=== PATIENT | female | born 1990 | race Caucasian/White ===

== ENCOUNTER 2016-11-21 20:47 | Emergency (ER) | payer BC ==
--- NOTE | 2016-11-21 22:13 | ED ---
General Adult HPI - General Chief complaint: ENT Stated complaint: ent, HEADACHE Time Seen by Provider: 11/21/16 21:59 Source: patient, RN notes reviewed Mode of arrival: ambulatory Limitations: no limitations - History of Present Illness Initial comments: Patient 26-year-old female who presents emergency room today with chief complaint of cough congestion over the last 4 days. Does admit that it started with sore throat. States progressed to increased rhinorrhea and cough congestion at times having some sputum production. She denies any fever at home. Denies any bodyaches. Does admit that she is proximal was 6 months . Denies any vaginal bleeding discharge. Denies any abdominal pain. Denies any other complaints or symptoms. Patient denies any recent fever, chills , shortness of breath, chest pain, back pain, abdominal pain, nausea or vomiting , numbness or tingling, dysuria or hematuria, constipation or diarrhea, headaches or visual changes, or any other complaints. - Related Data Allergies Allergy/AdvReac Type Severity Reaction Status Date / Time No Known Allergies Allergy Verified 11/21/16 21:23 Review of Systems ROS Statement: Those systems with pertinent positive or pertinent negative responses have been documented in the HPI. ROS Other: All systems not noted in ROS Statement are negative. Past Medical History Past Medical History: No Reported History History of Any Multi-Drug Resistant Organisms: None Reported Past Surgical History: Appendectomy Past Psychological History: No Psychological Hx Reported Smoking Status: Never smoker Past Alcohol Use History: None Reported Past Drug Use History: None Reported General Exam - General Exam Comments Initial Comments: General: The patient is awake and alert, in no distress, and does not appear acutely ill. Eye: Pupils are equal, round and reactive to light, extra-ocular movements are intact. No nystagmus. There is normal conjunctiva bilaterally. No signs of icterus. Ears, nose, mouth and throat: There are moist mucous membranes and no oral lesions. TMs clear bilaterally. The midline. Mild redness to the posterior pharynx no sign of exudate. Neck: The neck is supple, there is no tenderness or JVD. Cardiovascular: There is a regular rate and rhythm. No murmur, rub or gallop is appreciated. Respiratory: Lungs are clear to auscultation, respirations are non-labored, breath sounds are equal. No wheezes, stridor, rales, or rhonchi. Musculoskeletal: Normal ROM, no tenderness. Strength 5/5. Sensation intact. Pulses equal bilaterally 2+. Neurological: A&O x 3. CN II-XII intact, There are no obvious motor or sensory deficits. Coordination appears grossly intact. Speech is normal. Skin: Skin is warm and dry and no rashes or lesions are noted. Psychiatric: Cooperative, appropriate mood & affect, normal judgment. Limitations: no limitations Course Vital Signs 11/21/16 21:23 Temperature 97.0 F L Pulse Rate 94 Respiratory 17 Rate Blood Pressure 139/60 O2 Sat by Pulse 98 Oximetry Medical Decision Making - Medical Decision Making Patient examined here in the emergency room shows no signs of distress. Her vitals are stable. No fever. Patient does have cough congestion for the past 4 days. Advised patient most likely a viral illness. At this time chest x-ray due to . Patient feels comfortable being discharged home advised to follow-up family doctor over the next 2 days. Advised to use [id number] Claritin for symptoms. Advised return if any symptoms increase or worsen or for any other concerns. Disposition Clinical Impression: Upper respiratory infection Disposition: HOME SELF-CARE Condition: Good Instructions: Upper Respiratory Infection (ED) Additional Instructions: Please use [id number] Claritin as discussed. Please follow-up with family doctor in the next 2 days of symptoms have not improved. Please return to emergency room if the symptoms increase or worsen or for any other concerns. Time of Disposition: 22:13
[2016-11-21 22:35] VITALS: BP 123/67; PULSE 87; RESP 18; TEMP 98
== END 2016-11-21 22:34 | disposition home or self-care (01) ==
LOC: EC 20:47
DX: O99.512 Diseases of the respiratory system complicating pregnancy, second trimester (principal); J06.9 Acute upper respiratory infection, unspecified; Z3A.24 24 weeks gestation of pregnancy
CPT/HCPCS: 99283

== ENCOUNTER 2017-02-03 05:55 | Inpatient (IN) | payer BC ==
[2017-02-03 06:19] VITALS: BMI 26.4
[2017-02-03] MEDS ORDERED: OXYTOCIN 10 UNIT/ML 1 ML VIAL IM PRN (06:20)
[2017-02-03] MEDS ORDERED: TERBUTALINE 1 MG/ML VIAL SQ PRN (06:20)
[2017-02-03] MEDS ORDERED: CARBOPROST TROMETHAMINE 250 MCG/ML 1 ML AMP IM PRN (06:20)
[2017-02-03] MEDS ORDERED: METHYLERGONOVINE 0.2 MG/ML 1 ML AMP IM PRN (06:20)
[2017-02-03] MEDS ORDERED: LIDOCAINE 1% (PF) 10 MG/ML (30 ML SDV) SQ PRN (06:20)
[2017-02-03 06:38] LABS: Basophils % (A) 0 %; CHCM 35.6; Eosinophils # (A) 0.2 k/uL (0-0.7); Eosinophils % (A) 2 %; HCT 36.5 % (34.0-46.0); HDW 3.09; HGB 12.6 gm/dL (11.4-16.0); Luc # (Auto) 0.19; Luc % (Auto) 2; Lymphocytes # (A) 1.6 k/uL (1.0-4.8); Lymphocytes % (A) 15 %; MCH 30.3 pg (25.0-35.0); MCHC 34.6 g/dL (31.0-37.0); MCV 87.7 fL (80.0-100.0); Mean Platelet Volume 7.6; Monocytes # (A) 0.5 k/uL (0-1.0); Monocytes % (A) 5 %; Neutrophils % (A) 76 %; RBC 4.16 m/uL (3.80-5.40); RDW 14.4 % (11.5-15.5); WBC 10.5 k/uL (3.8-10.6); WBC (Perox) 10.83
[2017-02-03] MEDS ORDERED: BUTORPHANOL 1 MG/ML 1 ML VIAL IV PRN (07:13)
--- NOTE | 2017-02-03 07:13 | P.HPOB ---
History of Present Illness H&P Date: 02/03/17 Chief Complaint: 39-5/7 weeks, -induced hypertension The patient is a 26-year-old 1 para 0 admitted at 39-5/7 weeks as established by an 8 week ultrasound. She is admitted for induction of labor secondary to recently diagnosed -induced hypertension for which the blood pressures do come back to normal at rest. She additionally was found to have a very favorable cervix. She presents this morning for induction and is found to actually be in early active labor as her cervix is changed since last checked yesterday. Her has otherwise been uncomplicated. She is Rh- and received RhoGAM at 28 weeks. Group B strep status is negative. Obstetrical history 1 para 0 with current statistics listed in history of present illness. EDC of 02/05/2017 was established by 8 week ultrasound. Current statistics are listed in history of present illness. Laboratory workup demonstrates a blood type of A- with a negative antibody screen. Rubella status is immune. The remainder of her laboratory workup was within normal limits aside from an ASCUS Pap smear. One hour Glucola was within normal limits and group B strep status is negative. Gynecologic history is unremarkable with no history of any infections to include STDs. Review of Systems Review of systems is confined to history of present illness. Past Medical History Past Medical History: No Reported History Additional Past Medical History / Comment(s): hypoglycemia, heart murmur History of Any Multi-Drug Resistant Organisms: None Reported Past Surgical History: Appendectomy Past Anesthesia/Blood Transfusion Reactions: No Reported Reaction Past Psychological History: No Psychological Hx Reported Smoking Status: Never smoker Past Alcohol Use History: None Reported Past Drug Use History: None Reported - Past Family History Mother Family Medical History: Cancer, Hypertension Additional Family Medical History / Comment(s): cervical cancer Father Family Medical History: Myocardial Infarction ([place]) Medications and Allergies Home Medications Medication Instructions Recorded Confirmed Type Pnv 76/Iron,Gluc/Folic/Dss/Dha 1 each PO DAILY 02/03/17 02/03/17 History [Citranatal Dha Pack] Allergies Allergy/AdvReac Type Severity Reaction Status Date / Time No Known Allergies Allergy Verified 02/03/17 06:12 Exam - Vital Signs Vital signs: Vital Signs Temp Pulse Resp BP Pulse Ox 02/03/17 06:13 96.8 F L 70 18 153/84 95 Intake and Output 02/02/17 02/03/17 02/03/17 22:59 06:59 14:59 Other: Weight 67.585 kg General, this is a well-developed, well-nourished white female in no acute distress. Her heart has a regular rhythm and rate without murmur. Her lungs are clear to auscultation bilaterally in all [place]. Her abdomen is gravid, nondistended, has normal active bowel sounds, is soft, nontender, and without any palpable masses aside from uterine fundus. Her extremities are without any cyanosis, clubbing, have trace to +1 edema and are nontender to palpation bilaterally. Digital cervical examination demonstrates her cervix to be 5-6 cm dilated, 70-80% effaced, with the vertex in presentation at -2 station. Artificial rupture of membranes is carried out demonstrating clear fluid. Results Result Diagrams: 02/03/17 06:25 Abnormal Lab Results - Last 24 Hours (Table) 02/03/17 Range/Units 06:25 Neutrophils # 8.0 H (1.3-7.7) k/uL Assessment and Plan (1) induced hypertension Status: Acute (2) Active labor at term Status: Acute Plan: The patient is admitted for induction of labor which now is actually simply augmentation. She has undergone artificial rupture of membranes for clear fluid. Pitocin augmentation has been started. She will continue to have close maternal and surveillance and expectant management will be practiced. She is a good candidate for either IV or epidural analgesia, whichever she may choose.
[2017-02-03] MEDS ORDERED: IBUPROFEN 600 MG TAB PO PRN (13:28)
[2017-02-03] MEDS ORDERED: HYDROCORTISONE 2.5% RECTAL CREAM 30 GM TUBE RECTAL PRN (13:28)
[2017-02-03] MEDS ORDERED: ZOLPIDEM 5 MG TAB PO PRN (13:28)
[2017-02-03] MEDS ORDERED: diphenhydrAMINE 50 MG CAP PO PRN (13:28)
[2017-02-03] MEDS ORDERED: diphenhydrAMINE 25 MG CAP PO PRN (13:28)
[2017-02-03] MEDS ORDERED: ACETAMINOPHEN TAB 325 MG TAB PO PRN (13:28)
[2017-02-03] MEDS ORDERED: diphenhydrAMINE 50 MG/ML 1 ML VIAL IVP PRN ×2 (13:28)
[2017-02-03] MEDS ORDERED: Acetaminophen-Codeine 300-30mg TAB PO PRN ×2 (13:28)
[2017-02-03] MEDS ORDERED: LANOLIN CREAM 5 GM TUBE TOPICAL PRN (13:28)
[2017-02-03] MEDS ORDERED: SIMETHICONE 80 MG CHEWABLE PO PRN (13:28)
[2017-02-03] MEDS ORDERED: BENZOCAINE SPRAY 57GM TOPICAL PRN (13:28)
[2017-02-03] MEDS ORDERED: WITCH HAZEL 1 EACH MED..PAD TOPICAL PRN (13:28)
[2017-02-03] MEDS ORDERED: DIPH,PERTUS(ACELL)TETVAC-LF 0.5 ML VIAL IM ONE (13:30)
--- NOTE | 2017-02-03 13:33 | P.PROBDLV ---
Vaginal Delivery Note - . Vaginal Delivery Note: The patient is a 26-year-old 1 para 0 admitted at 39-5/7 weeks as established by good dating parameters. She is admitted for induction of labor secondary to -induced hypertension with a very favorable cervix. She is Rh- and received RhoGAM at 28 weeks. She otherwise has had an uncomplicated until the development of mild -induced hypertension. On labor and delivery, all signs were reassuring. Digital cervical examination demonstrated the the patient was already in the active phase of labor at 5-6 cm of dilation. She underwent artificial rupture of membranes of clear fluid. She then made steady progress to the remainder of the active phase of labor without any augmentation. She progressed to complete and then pushed over the course of just slightly more than 1 hour to a normal spontaneous vaginal delivery of a viable 7 lbs. 14 oz. baby girl with Apgars of 9 at 1 minute and 9 at 5 minutes delivered in the right occiput anterior position. The cord blood was collected for evaluation for the necessity of RhoGAM prior to discharge. The placenta was delivered spontaneously, intact, and grossly normal with a grossly normal three-vessel cord inserted several centimeters away from the margin of the placental disc. There was a small second-degree midline perineal laceration noted which was repaired in standard fashion using 3 -0 chromic catgut without difficulty. Estimated blood loss for the case is approximately 150 mL. There were no complications. All sponge, instrument, and needle counts were correct. Both mother and are resting comfortably in recovery.
[2017-02-03] MEDS ORDERED: SENNOSIDES-DOCUSATE SODIUM 1 EACH TAB PO SCH (20:00)
[2017-02-03] MEDS: OXYTOCIN 20 UNITS/1000 ML NS 1,000 ML IV SCH (20:19)
[2017-02-03] MEDS: LACTATED RINGERS 1,000 ML IV SCH ×2 (20:19→20:21)
[2017-02-04] MEDS: OXYTOCIN 20 UNITS/1000 ML NS 1,000 ML IV SCH (04:13)
[2017-02-04] MEDS: LACTATED RINGERS 1,000 ML IV SCH (04:13)
[2017-02-04 09:21] VITALS: BP 132/77; PULSE 76; RESP 20; TEMP 98.1
--- NOTE | 2017-02-04 10:56 | P.DS ---
Providers Date of admission: 02/03/17 05:55 Expected date of discharge: 02/04/17 Attending physician: Jorge Faust Primary care physician: Jorge Faust - Discharge Diagnosis(es) (1) induced hypertension Current Visit: Yes Status: Acute (2) Active labor at term Current Visit: Yes Status: Acute (3) Normal spontaneous vaginal delivery Current Visit: Yes Status: Acute Hospital Course: The patient is a 26-year-old 1 para 0 admitted at 39-5/7 weeks by good dating parameters. She is admitted for induction of labor secondary to -induced hypertension and favorable cervix. Upon admission, she was actually found to be in early labor with cervical change documented from her previous check the day before in the office. She underwent artificial rupture of membranes and progressed to complete at a steady pace. She pushed to a normal spontaneous vaginal delivery of a viable 7 lbs. 14 oz. baby girl with Apgars of 9 at 1 minute and 9 at 5 minutes. Her course was unremarkable vital signs remaining stable and her temperature was afebrile throughout. She was deemed stable for discharge by day #1 was discharged home to follow-up in the office in 6 weeks' time routinely. Discharge instructions included calling for any significantly increased bleeding or foul-smelling lochia, significantly increased fever or abdominal pain, perineal complaints, breast complaints, or anything else that concerned her. She was additionally instructed to have nothing in the vagina for at least 6 weeks time to include intercourse. She understood her instructions and agrees to follow up as noted above. Discharge medications included continued vitamins as she has opted to breast-feed or, at the very least, pump. To that and she was provided with a prescription for a dual electric breast pump. She was otherwise to use [id number] analgesic pain medications. Maternal blood type is A- and cord blood was sent for evaluation for the necessity of RhoGAM prior to discharge. Rubella status is immune. Procedures: #1. Artificial rupture of membranes #2. Spontaneous vaginal delivery #3. Repair of perineal laceration Patient Condition at Discharge: Good Plan - Discharge Summary New Discharge Prescriptions: No Action Pnv 76/Iron,Gluc/Folic/Dss/Dha [Citranatal Dha Pack] 1 each PO DAILY Discharge Medication List Pnv 76/Iron,Gluc/Folic/Dss/Dha [Citranatal Dha Pack] 1 each PO DAILY 02/03/17 [ History] Follow up Appointment(s)/Referral(s): Jorge Faust MD [Primary Care Provider] - 6 Weeks Discharge Disposition: HOME SELF-CARE
== END 2017-02-04 14:55 | disposition home or self-care (01) | DRG 775 ==
LOC: 4FBP 05:55
PROVIDERS: ADMIT Obstetrics & Gynecology; ATTEND Obstetrics & Gynecology
PROC: 10E0XZZ Delivery of Products of Conception, External Approach (ICD-10-PCS; principal; 2017-02-03)
PROC: 0KQM0ZZ Repair Perineum Muscle, Open Approach (ICD-10-PCS; 2017-02-03)
PROC: 3E033VJ Introduction of Other Hormone into Peripheral Vein, Percutaneous Approach (ICD-10-PCS; 2017-02-03)
PROC: 3E0234Z Introduction of Serum, Toxoid and Vaccine into Muscle, Percutaneous Approach (ICD-10-PCS; 2017-02-03)
DX: O13.4 Gestational [pregnancy-induced] hypertension without significant proteinuria, complicating childbirth (principal); O26.893 Other specified pregnancy related conditions, third trimester; O70.1 Second degree perineal laceration during delivery; Z67.11 Type A blood, Rh negative; Z37.0 Single live birth; Z23 Encounter for immunization; Z3A.39 39 weeks gestation of pregnancy; Z79.899 Other long term (current) drug therapy
CPT/HCPCS: 85025; 88307; 90715

== ENCOUNTER → 2021-10-29 | Outpatient (CLI) | payer BC ==
[2021-10-29 08:17] LABS: Basophils # (A) 0.1 k/uL (0-0.2); Basophils % (A) 1 %; Eosinophils # (A) 0.3 k/uL (0-0.7); Eosinophils % (A) 3 %; HCT 37.1 % (34.0-46.0); HGB 12.5 gm/dL (11.4-16.0); Lymphocytes # (A) 1.4 k/uL (1.0-4.8); Lymphocytes % (A) 14 %; MCH 30.3 pg (25.0-35.0); MCHC 33.7 g/dL (31.0-37.0); Mean Platelet Volume 7.3; Monocytes # (A) 0.4 k/uL (0-1.0); Monocytes % (A) 4 %; Neutrophils # (A) 7.8 k/uL (1.3-7.7); Neutrophils % (A) 77 %; Platelet Count 260 k/uL (150-450); RBC 4.12 m/uL (3.80-5.40); RDW 12.4 % (11.5-15.5)
== END | disposition home or self-care (01) ==
LOC: LABPAT 07:25
PROVIDERS: ATTEND Obstetrics & Gynecology
DX: Z01.812 Encounter for preprocedural laboratory examination (principal); O03.4 Incomplete spontaneous abortion without complication; Z3A.00 Weeks of gestation of pregnancy not specified
CPT/HCPCS: 85025

== ENCOUNTER 2021-10-30 07:07 | Day surgery (SDC) | payer BC ==
[2021-10-28 15:41] VITALS: BMI 18.9
[~2021-10-30 07:07] MED LIST: DEXAMETHASONE SOD PHOSPHATE 4 MG/ML 1 ML VIAL IV ONE; HYDROmorphone 0.5 MG/0.5 ML SYRINGE IVP PRN; LACTATED RINGERS 1,000 ML IV SCH; ONDANSETRON 4 MG/2 ML VIAL IVP ONE; Pre Op ABX Message 1 EACH MISC MISCELLANE ONE
[2021-10-30 07:56] LABS: Glucose,Whole Blood 97 mg/dL (75-99)
[2021-10-30] MEDS ORDERED: LIDOCAINE 1% INJ 10MG/ML (20 ML MDV) ONE (08:59)
[2021-10-30] MEDS ORDERED: PROPOFOL 10 MG/ML 20 ML VIAL IV ONE (08:59)
[2021-10-30] MEDS ORDERED: MIDAZOLAM 2 MG/2 ML VIAL ONE (08:59)
[2021-10-30] MEDS ORDERED: fentaNYL (PF) 50 MCG/ML 2 ML AMP ONE (08:59)
[2021-10-30] MEDS ORDERED: KETOROLAC 15 MG/ML 1 ML VIAL ONE (08:59)
[2021-10-30] MEDS ORDERED: METOCLOPRAMIDE 5 MG/ML 2 ML VIAL IVP PRN (09:48)
[2021-10-30] MEDS ORDERED: IBUPROFEN 600 MG TAB PO PRN (09:48)
[2021-10-30] MEDS ORDERED: Acetaminophen-Codeine 300-30mg TAB PO PRN ×2 (09:48)
[2021-10-30] MEDS ORDERED: diphenhydrAMINE 50 MG/ML 1 ML VIAL IVP PRN (09:48)
[2021-10-30] MEDS ORDERED: SIMETHICONE 80 MG CHEWABLE PO PRN (09:48)
[2021-10-30] MEDS ORDERED: KETOROLAC 15 MG/ML 1 ML VIAL IVP PRN (09:48)
[2021-10-30] MEDS ORDERED: ONDANSETRON 4 MG/2 ML VIAL IVP PRN (09:48)
--- NOTE | 2021-10-30 09:53 | P.OP ---
Date of Procedure: 10/30/21 Preoperative Diagnosis: #1. Incomplete , strongly suspect molar Postoperative Diagnosis: Same Procedure(s) Performed: #1. Dilation and aspiration curettage Anesthesia: other (Gen. by face mask) Surgeon: Jorge Faust Estimated Blood Loss (ml): 100 IV fluids (ml): 400 Urine output (ml): 50 Pathology: other (Endometrial contents, strongly suspect molar ) Condition: stable Disposition: PACU Operative Findings: Preoperative pelvic examination demonstrated roughly 6-7 week midplane mobile normal shaped uterus with normal adnexa bilaterally. Intraoperatively, the uterus sounded to 10 cm. Tissue was clearly seen passing through the tubing on the first pass with the aspiration curet and no further tissue was noted thereafter. The uterus was appreciably smaller after curettage. Description of Procedure: The patient was prepped and draped in usual fashion after general anesthesia was administered by the anesthesiologist. A weighted speculum was placed in the bladder draining approximately 100 mL of clear carmella urine. The anterior lip of the cervix was grasped with a single-tooth tenaculum and uterus sounded to 10 cm as noted above. Serial dilation was carried out to admit a #8 curved suction curet which was placed to the fundus of the uterus and suction applied. After adequate suctioning had been built, thorough and circumferential aspiration curettage was carried out from the fundus to the cervix with tissue clearly being seen passing through the tubing. A second pass was made at which time no further tissue was noted. The aspiration curet was set aside in favor of a sharp curet which was utilized to thoroughly and circumferentially curet the endometrial lining at which time the typical gritty texture was noted and no further tissue was produced. One last pass was made with the aspiration curet which time no further tissue was noted. All instrumentation was removed. There was a small point of bleeding at one of the tenaculum sites which was made hemostatic with pressure. Estimated blood loss for the case was approximate 100 mL. There were no complications. All sponge, instrument, and needle counts were correct. The patient tolerated the procedure well and proceeded to the recovery room in stable condition.
[2021-10-30 09:54] VITALS: TEMP 96.8
[2021-10-30 09:56] VITALS: RESP 16
[2021-10-30] MEDS ORDERED: LACTATED RINGERS 1,000 ML IV SCH (10:00)
[2021-10-30 11:21] VITALS: BP 101/59; PULSE 74
== END 2021-10-30 11:22 | disposition home or self-care (01) ==
LOC: OR 07:07
PROVIDERS: ATTEND Obstetrics & Gynecology
DX: O03.4 Incomplete spontaneous abortion without complication (principal); Z86.16 Personal history of COVID-19; R01.1 Cardiac murmur, unspecified; E16.2 Hypoglycemia, unspecified; Z90.49 Acquired absence of other specified parts of digestive tract; Z82.5 Family history of asthma and other chronic lower respiratory diseases; Z82.49 Family history of ischemic heart disease and other diseases of the circulatory system; Z83.3 Family history of diabetes mellitus; Z80.41 Family history of malignant neoplasm of ovary; Z80.0 Family history of malignant neoplasm of digestive organs
CPT/HCPCS: 86900; 86901; 88305; 86850; 86870; 86880; 59812; J2250; J1100; J2405; J2001; J3010; J1885; J2704

== ENCOUNTER → 2021-11-20 | Outpatient (CLI) | payer BC | END | disposition home or self-care (01) | LOC: LABWHC1 11:10 | PROVIDERS: ATTEND Obstetrics & Gynecology | DX: O08.9 Unspecified complication following an ectopic and molar pregnancy (principal) | CPT/HCPCS: 36415; 84702 ==

== ENCOUNTER → 2021-12-11 | Outpatient (CLI) | payer BC | END | disposition home or self-care (01) | LOC: LABWHC1 14:25 | PROVIDERS: ATTEND Obstetrics & Gynecology | DX: O01.9 Hydatidiform mole, unspecified (principal); Z3A.00 Weeks of gestation of pregnancy not specified | CPT/HCPCS: 36415; 84702 ==

== ENCOUNTER → 2022-01-04 | Outpatient (CLI) | payer BC | END | disposition home or self-care (01) | LOC: LABWHC1 09:58 | PROVIDERS: ATTEND Obstetrics & Gynecology | DX: O01.9 Hydatidiform mole, unspecified (principal); Z3A.00 Weeks of gestation of pregnancy not specified | CPT/HCPCS: 36415; 84702 ==

== ENCOUNTER → 2022-01-28 | Outpatient (CLI) | payer BC | END | disposition home or self-care (01) | LOC: LABWHC1 16:19 | PROVIDERS: ATTEND Obstetrics & Gynecology | DX: O01.9 Hydatidiform mole, unspecified (principal); Z3A.00 Weeks of gestation of pregnancy not specified | CPT/HCPCS: 36415; 84702 ==

== ENCOUNTER → 2022-02-25 | Outpatient (CLI) | payer BC | END | disposition home or self-care (01) | LOC: LABWHC1 09:52 | PROVIDERS: ATTEND Obstetrics & Gynecology | DX: O01.9 Hydatidiform mole, unspecified (principal); Z3A.00 Weeks of gestation of pregnancy not specified | CPT/HCPCS: 36415; 84702 ==

== ENCOUNTER → 2022-05-14 | Outpatient (CLI) | payer BC | END | disposition home or self-care (01) | LOC: LABWHC1 09:23 | PROVIDERS: ATTEND Obstetrics & Gynecology | DX: O01.9 Hydatidiform mole, unspecified (principal); Z3A.00 Weeks of gestation of pregnancy not specified | CPT/HCPCS: 36415; 84702 ==

== ENCOUNTER → 2022-05-31 | Outpatient (CLI) | payer BC | END | disposition home or self-care (01) | LOC: LABWHC1 09:43 | PROVIDERS: ATTEND Obstetrics & Gynecology | DX: O01.9 Hydatidiform mole, unspecified (principal); Z3A.00 Weeks of gestation of pregnancy not specified | CPT/HCPCS: 36415; 84702 ==